=== PATIENT | female | born 2000 | race Caucasian/White ===

== ENCOUNTER → 2021-01-20 | Outpatient (CLI) | payer BC ==
[~2021-01-20] MED LIST: AMOXICILLIN 8751 TAB PO; COLACE 100100 MG/CAP PO; DEPO-PROVE150 MG/1 M IM; DOXYCYCLINE 10100 MG PO; INDERAL 20MG20 MG PO; LILETTA52 MG IY; MINIPRESS 1M1 MG/CAP PO; NORCO 325 MG-51 TAB PO; OMNICEF 300MG300 MG PO; ORTHO TRI-CYCLE1 TAB PO; PHENERGAN25 MG/M1 IJ; PROZAC 20MG20 MG PO; SEROQUEL50 MG PO; TYLENOL 500MG500 MG PO; ULTRA B-100 COM1 TER PO; WELLBUTRIN XL150 MG PO; ZOFRAN ODT4 MG PO
== END ==
LOC: COL.RAD 11:48
DX: R10.11 Right upper quadrant pain (principal)
CPT/HCPCS: A9562; J1940

== ENCOUNTER 2021-02-01 08:24 | Inpatient (IN) | payer BC ==
[~2021-02-01] VITALS: Ht 162.6 cm; Wt 101.1 kg
[~2021-02-01 08:24] MED LIST changes: -AMOXICILLIN 8751 TAB PO; -COLACE 100100 MG/CAP PO; -LILETTA52 MG IY; -NORCO 325 MG-51 TAB PO; -TYLENOL 500MG500 MG PO
[2021-03-09] VITALS (10 sets, daily range): BP systolic 112–140; BP diastolic 60–70; PULSE 61–100; TEMP 98.4–99
[2021-03-09] MEDS ORDERED: TYLENOL 500MG500 MG PO (08:09)
[2021-03-09] MEDS ORDERED: LILETTA52 MG IY (08:10)
--- NOTE | 2021-03-09 08:30 | NUR ---
The patient ambulated back to [facility] independently using a steady gait and appeared to tolerate the activity well. Vital signs obtained. Consent signed. test refusal form signed at the request of the patient. Assessment completed. 18G IV started in left hand with one stick, LR infusing without difficulty. Blood obtained from IV start for Type and Screen as ordered. ERAS medications given pre op and gatorade drank this morning in accordance with ERAS protocol. The patient did answer yes one of the suicide risk questions but it was in the past and she no longer has thoughts of harming herself. The nurse did ask her if she felt like she had support and someone she could reach out to if the harmful thoughts returned and the patient answered yes. Call light is within reach. Will continue to monitor the patient.
[2021-03-09 14:32] LABS: BASO % 0.2 % (0.0-2.0); EOS % 0.1 % (0-4.0); GRAN # 11.1 (1.4-6.5); GRAN % 91.9 % (42.2-75.2); LYMPH # 0.8 (1.2-3.4); LYMPH % 6.3 % (20.0-51.0); MEAN CELL VOLUME 91 fl (80.0-100.0); MEAN CORPUSCULAR HEMOGLOBIN 29 pg (27.0-31.0); MEAN CORPUSCULAR HGB CONC 32 g/dl (33.0-37.0); MEAN PLATELET VOLUME 11.3 fl (7.4-10.4); MONO # 0.2 (0.1-0.6); MONO % 1.2 % (1.7-9.3); PLATELET COUNT 227 K/mm3 (130-400); RED BLOOD COUNT 4.49 M/mm3 (4.10-5.30)
[2021-03-09 14:40] LABS: CALCIUM 8.8 mg/dL (8.4-10.2); CREATININE, serum 0.91 (0.52-1.25); POTASSIUM 4.1 mmol/L (3.4-5.0)
--- NOTE | 2021-03-09 14:47 | NUR ---
Patient to room from PACU via bed. Alert and oriented x4. Patient says that she is sleepy, encourage rest. Rates pain in abd 5/10, describes as ache, but is tolerable at this time. Patient has four small lap sites and one 2 inch midline abd site that all edges are well approximated, no redness/swelling/discharge noted, with exofem in place. Cui to dependent drainage with clear yellow urine noted. Discuss with the patient starting clear liquids initially and then advancing diet as tolerates. [place] to room. Patient denies additional needs at this time.
--- NOTE | 2021-03-09 16:07 | NUR ---
Patient resting in bed with eyes closed. Respirations even and unlabored. No signs or symptoms of discomfort noted.
--- NOTE | 2021-03-09 16:25 | NUR ---
Lying in bed with eyes open, has grimace on face. Rating pain in abd 7/10 and would like pain medication. Will administer Roxicodone as prescribed. Discuss with the patient that RT will come in to show her how to use an IS. Patient would like to advance diet, explained how to order food. Denies additional needs at this time.
--- NOTE | 2021-03-09 17:48 | NUR ---
Sitting up in bed watching TV and eating dinner. Rates pain in abd 04/29, has come down some since pain medication. Patient denies additional needs or concerns at this time.
--- NOTE | 2021-03-09 18:21 | NUR ---
Patient sitting up in bed, just finished eating, spouse in room. Patient feels that her pain is increasing and she would like pain medication. Will administer Tramadol as prescribed.
--- NOTE | 2021-03-09 20:42 | NUR ---
PATIENT WAS RECEIVED IN THE [facility] SITTING IN BED.DUE MEDS GIVEN,ASSESSMENT DONE.ASSISTED TO SIT ON THE BEDSIDE CHAIR TOLERATED WELL.NO OTHER NEEDS AT THIS TIME.
[2021-03-10 00:56] VITALS: BP 141/79; PULSE 77; TEMP 98.4
[2021-03-10 04:58] VITALS: BP 144/84; PULSE 76; TEMP 98.6
--- NOTE | 2021-03-10 05:23 | NUR ---
PATIENT HAD A CALM NIGHT.PAIN UNDER GOOD CONTROL.NO OTHER CONCERNS RAISED.
--- NOTE | 2021-03-10 06:55 | NUR ---
Lying in bed with eyes open. Alert and oriented x4. Rates pain in abd 6/10 at this time. Patient has four small incisions to abd with exofem intact, edges well approximated, no redness/swelling/discharge. Midline abd incision with exofem intact, edges well approximated, no redness/swelling/discharge. Cui to dependent drainage with clear yellow urine noted in bag. Discuss with the patient that we are going to take out her catheter, explain process. Provide cath care. Remove 9ml of saline from balloon, catheter pulled at this time with all intact. Pericare provided. Patient tolerates well. Explain that she will void into hat in toilet so that we can monitor her output and to let staff know when she goes so that we can empty the hat. Encourage patient to get up and ambulate in halls today as well. Patient is hopeful to be discharged today. Denies additional needs at this time.
[2021-03-10 07:26] VITALS: BP 145/98; PULSE 93; TEMP 97.8
[2021-03-10 07:39] LABS: BASO % 0.2 % (0.0-2.0); EOS % 0.1 % (0-4.0); GRAN # 15.2 (1.4-6.5); GRAN % 83.1 % (42.2-75.2); HEMATOCRIT 39.1 % (37.0-47.0); HEMOGLOBIN 12.5 g/dl (12.5-16.0); LYMPH # 1.8 (1.2-3.4); MEAN CELL VOLUME 92 fl (80.0-100.0); MEAN CORPUSCULAR HEMOGLOBIN 29 pg (27.0-31.0); MEAN CORPUSCULAR HGB CONC 32 g/dl (33.0-37.0); MEAN PLATELET VOLUME 12.7 fl (7.4-10.4); MONO # 1.1 (0.1-0.6); MONO % 6.2 % (1.7-9.3); PLATELET COUNT 255 K/mm3 (130-400); RED BLOOD COUNT 4.26 M/mm3 (4.10-5.30); REDCELL DISTRIBUTION WIDTH-CV 14.6 % (11.5-14.5)
[2021-03-10 07:51] LABS: CALCIUM 8.8 mg/dL (8.4-10.2); CREATININE, serum 0.83 (0.52-1.25); POTASSIUM 4.2 mmol/L (3.4-5.0)
--- NOTE | 2021-03-10 09:05 | NUR ---
Sitting up in chair watching TV. Just finished breakfast. Rates pain 6/10 in abd, tolerable at this time. Explain that I will attempt to contact Dr Maldonado to ask about discharge meds and new prescriptions to see if he can send them to the pharmacy so her significant other can pick them up today as he will not be able to pick her up until after 1900. Explain I will let her know what Dr. Flower says. Patient denies additional needs at this time.
--- NOTE | 2021-03-10 10:08 | NUR ---
Spoke with Dr. Flower and he will enter home prescriptions into E-script system to allow for patient significant other to pick them up before the pharmacy closes as she will be discharging late. Will update patient.
[2021-03-10] MEDS ORDERED: NORCO 325 MG-51 TAB PO (10:12)
[2021-03-10] MEDS ORDERED: COLACE 100100 MG/CAP PO (10:12)
[2021-03-10] MEDS ORDERED: AMOXICILLIN 8751 TAB PO (10:58)
--- NOTE | 2021-03-10 11:04 | NUR ---
Clarified with Dr. Flower that the patient is to continue Augmentin twice a day for one week at home. This prescription called in to [facility] pharmacy in [place] to pharmacist Elsy. Patient informed.
--- NOTE | 2021-03-10 11:08 | NUR ---
Sitting up in bed. Rates pain 7/10 in abd. Administer Roxicodone as prescribed. Patient aware of prescriptions sent to [facility] pharmacy and her significant other will pick them up around 1700. Patient denies additional needs at this time.
--- NOTE | 2021-03-10 11:14 | NUR ---
Plan to return home in [facility] with partner. SW met with patient in room about DC plan. Patient reports that she has a spouse Emil Cassidy that she resides with . Patient reports that her pcp is Dr. Soto and sees Dr. Wilson. Patient obtains medications at [facility] without difficulty. Patient indicated that she has transportation with her spouse. Patinet indicated that her gets off at 7 p.m. and would need to DC around a time that works for pickup. NO additonal concerns reported. NF.
[2021-03-10 11:51] VITALS: BP 127/70; PULSE 68; TEMP 98.3
--- NOTE | 2021-03-10 13:16 | NUR ---
First visit from the squad leader. No needs right now.
[2021-03-10 15:47] VITALS: BP 120/60; PULSE 55; TEMP 98
--- NOTE | 2021-03-10 16:14 | NUR ---
Sitting up in bed watching TV. Rates pain in abd 5/10, tolerable at this time and declines need for pain medication but will let me know if needs some. Review all discharge instructions with the patient. Denies questions and signs all discharge paperwork. Patient significant other will not be off work until after 1900 so he will be here later to pick her up. Explain that this is okay and she can let us know when he is here and we will help her out to the vehicle. Explain that we will continue to monitor her and administer medications until he arrives to get her. Patient will also order dinner prior to leaving. Denies additional needs at this time.
--- NOTE | 2021-03-10 17:06 | NUR ---
Patient sitting up in chair watching TV. Says that her spouse picked up her meds but they did not give him the COlace but they will just purchase it over the counter. Rating pain in abd 8/10 and would like pain medication. Administer Roxicodone as prescribed. Patient denies additional needs at this time.
--- NOTE | 2021-03-10 20:03 | NUR ---
Pt. escorted out by wheelchair at this time.
== END 2021-03-10 20:03 | disposition home or self-care (01) | DRG 661 ==
LOC: SURG 03-09 07:30 → INPTSU 03-09 07:38 → SURG 03-09 09:00 → INPTSU 03-09 11:50 → SURG 03-09 14:39
PROVIDERS: ADMIT Urology
PROC: 8E0W4CZ Robotic Assisted Procedure of Trunk Region, Percutaneous Endoscopic Approach (ICD-10-PCS; 2021-03-09)
PROC: 0TT04ZZ Resection of Right Kidney, Percutaneous Endoscopic Approach (ICD-10-PCS; principal; 2021-03-09 10:00)
DX: N13.2 Hydronephrosis with renal and ureteral calculous obstruction (principal); Z20.822 Contact with and (suspected) exposure to COVID-19; G43.909 Migraine, unspecified, not intractable, without status migrainosus; Z80.51 Family history of malignant neoplasm of kidney; Z84.1 Family history of disorders of kidney and ureter
CPT/HCPCS: A4314; A9284; J0690; J1100; J1170; J1650; J2250; J2270; J2370; J2405; J2704; J3010; J7120